=== PATIENT | female | born 1970 | race Caucasian/White ===

== ENCOUNTER 2022-05-06 15:06 | Emergency (ER) | payer OTHER, SELFPAY ==
[2022-05-06 15:14] VITALS: BP 136/110; PULSE 73; RESP 16; TEMP 36.3; O2SAT 100
--- NOTE | 2022-05-06 15:29 | ED.EAR ---
HPI - Ear Problem General Chief complaint: Ear Stated complaint: Right Ear Time Seen by Provider: 05/06/22 15:29 History of Present Illness HPI Narrative: RIGHT EAR PAIN NO DRAINAGE NO HEARING LOSS Related Data Allergies Allergy/AdvReac Type Severity Reaction Status Date / Time No Known Allergies Allergy Verified 05/06/22 15:32 Review of Systems Review of Systems: CONSTITUTIONAL: Denies fever, chills, or sweats. EYES: Denies visual changes, redness, or discharge. ENT: Denies rhinorrhea, congestion, sore throat, or otalgia. CARDIOVASCULAR: Denies chest pain, palpitations, or edema. RESPIRATORY: Denies cough or dyspnea. GASTROINTESTINAL: Denies abdominal pain, nausea, vomiting, or diarrhea. GENITOURINARY: Denies dysuria or hematuria. SKIN: Denies rash or itching. MUSCULOSKELETAL: Denies back pain, joint pain, or myalgia. NEUROLOGIC: Denies headache, numbness, or weakness. PSYCHIATRIC: Denies anxiety or depression. [facility] Family History Family History (Updated 05/28/14 @ 07:13 by DOCTOR UNKNOWN) Mother Family history of thyroid disease Father Family history of heart disease in male family member before age 55 Social History Social History Smoking status: Never smoker Alcohol intake: never Comments At time of signature, agree with nursing past medical, surgical, social and family history. There is no relevant family history pertinent to the presenting complaint Exam Narrative: GENERAL: Well-appearing, well-nourished, and in no acute distress. HEAD: Normocephalic, atraumatic. EYES: PERRLA and EOMI. ENT: Nares clear, no rhinorrhea or epistaxis. Mucous membranes moist. Moderate erythema to right canal right TM opaque left ear normal with good light reflex to left TM NECK: Supple. CHEST: Clear to auscultation. No respiratory distress. HEART: Regular rate and rhythm. No murmur heard. Normal peripheral pulses. ABDOMEN: Soft, nontender, nondistended, normal active bowel sounds. EXTREMITIES: Normal range of motion. No edema. SKIN: Warm, dry, no rash. NEURO: No focal deficits. Alert and oriented x3. Peggy Coma Scale Eye Opening: Spontaneous 4 [place] Coma Scale Motor: Obeys Commands 6 [place] Coma Scale Verbal: Oriented 5 [place] Coma Scale Total 15 Course Course Level of Care: Express Care Visit Vital Signs Vital signs: Vital Signs Temperature 36.3 C L 05/06/22 15:14 Pulse Rate 73 05/06/22 15:14 Respiratory Rate 16 05/06/22 15:14 Blood Pressure 136/110 H 05/06/22 15:14 Pulse Oximetry 100 05/06/22 15:14 Oxygen Delivery Room Air 05/06/22 15:14 Temperature 36.3 C L 05/06/22 15:14 Pulse Rate 73 05/06/22 15:14 Respiratory Rate 16 05/06/22 15:14 Blood Pressure 136/110 H 05/06/22 15:14 Pulse Oximetry 100 05/06/22 15:14 Oxygen Delivery Room Air 05/06/22 15:14 Please MANUEL schedule a followup visit with your personal physician for further evaluation and treatment. Including recheck and discussion of your blood pressure. If your symptoms persist, change or worsen significantly before you can contact your personal physician then please, without delay, go to the emergency department for further evaluation Medical Decision Making Differential Diagnosis Differential Diagnosis: Otitis media, otitis externa, eustachian tube dysfunction Vital Signs Vital Signs: Vital Signs Temperature 36.3 C L 05/06/22 15:14 Pulse Rate 73 05/06/22 15:14 Respiratory Rate 16 05/06/22 15:14 Blood Pressure 136/110 H 05/06/22 15:14 Pulse Oximetry 100 05/06/22 15:14 Oxygen Delivery Room Air 05/06/22 15:14 Temperature 36.3 C L 05/06/22 15:14 Pulse Rate 73 05/06/22 15:14 Respiratory Rate 16 05/06/22 15:14 Blood Pressure 136/110 H 05/06/22 15:14 Pulse Oximetry 100 05/06/22 15:14 Oxygen Delivery Room Air 05/06/22 15:14 Discharge Plan Discharge Clinical Impression: Otitis media Patient Disposition: Home, Self-Care Condition: Stabl
== END 2022-05-06 15:42 | disposition home or self-care (01) ==
PROVIDERS: Emergency Provider Nurse Practitioner Family; PCP Internal Medicine Infectious Disease
DX: H66.91 Otitis media, unspecified, right ear (principal)
CPT/HCPCS: 99203; G0463

== ENCOUNTER 2023-02-22 14:44 | Emergency (ER) | payer OTHER, SELFPAY ==
[2023-02-22 14:48] VITALS: BP 152/88; PULSE 84; RESP 20; TEMP 36.2; O2SAT 100
--- NOTE | 2023-02-22 14:50 | ED.EYEPROB ---
HPI - Eye Problem General Chief complaint: Eye Problems Stated complaint: poss pink eye Time Seen by Provider: 02/22/23 14:50 Source: patient and RN notes reviewed History of Present Illness HPI Narrative: Patient is a 52 old female presents to urgent care with complaints of 3 days of bilateral eye itchiness, matting and drainage. More effective to the right eye. Patient states that she has been using Visine. States that she does were glasses but does not use contacts. Denies any trauma or injury to the eye. Currently denies any vision change. No other acute complaints. No acute distress noted. Patient aware of the plan of care. Some parts of this dictation were generated by voice recognition software and may contain typographical and/or grammatical inaccuracies. Related Data Home Medications Medication Instructions Recorded Confirmed aspirin 81 mg tablet,delayed 81 mg PO DAILY 02/22/23 02/22/23 release (Enteric Coated Aspirin) Allergies Allergy/AdvReac Type Severity Reaction Status Date / Time No Known Allergies Allergy Verified 02/22/23 14:47 Review of Systems Review of Systems: CONSTITUTIONAL: Denies fever, chills, or sweats. EYES: Bilateral eye drainage, irritation, itchiness and matting ENT: Denies rhinorrhea, congestion, sore throat, or otalgia. CARDIOVASCULAR: Denies chest pain, palpitations, or edema. RESPIRATORY: Denies cough or dyspnea. GASTROINTESTINAL: Denies abdominal pain, nausea, vomiting, or diarrhea. GENITOURINARY: Denies dysuria or hematuria. SKIN: Denies rash or itching. MUSCULOSKELETAL: Denies back pain, joint pain, or myalgia. NEUROLOGIC: Denies headache, numbness, or weakness. All other systems reviewed are negative, except as documented in HPI. [facility] Family History Family History (Updated 05/28/14 @ 07:13 by DOCTOR UNKNOWN) Mother Family history of thyroid disease Father Family history of heart disease in male family member before age 55 Social History Social History Smoking status: Never smoker Alcohol intake: never Comments At the time of my signature, I reviewed and agree with the nursing past medical, surgical, social, and family history. There is no relevant family history pertinent to the patient complaint. Exam Narrative: GENERAL: This is a well-nourished, well-developed patient, in no apparent distress. HEAD: normocephalic, atraumatic. EYES: PERRL. Sclera clear/white. Vision is grossly intact. Mild injected conjunctiva bilaterally with clear discharge. EARS: External ears normal, NOSE: External nose normal with no obvious nasal discharge, nares without redness, no rhinorrhea. THROAT: Mucous membranes moist, posterior pharynx clear. NECK: Neck supple SKIN: warm, intact with no suspicious lesions or rash, good texture and turgor. NEURO: awake, alert, and oriented to person, place and time. There were no obvious focal neurologic abnormalities. EXTREMITIES: No clubbing, cyanosis, or edema. Course Course Level of Care: Express Care Visit Vital Signs Vital signs: Vital Signs Temperature 97.2 F L 02/22/23 14:48 Pulse Rate 84 02/22/23 14:48 Respiratory Rate 20 02/22/23 14:48 Blood Pressure 152/88 H 02/22/23 14:48 Pulse Oximetry 100 02/22/23 14:48 Oxygen Delivery Room Air 02/22/23 14:48 Temperature 97.2 F L 02/22/23 14:48 Pulse Rate 84 02/22/23 14:48 Respiratory Rate 20 02/22/23 14:48 Blood Pressure 152/88 H 02/22/23 14:48 Pulse Oximetry 100 02/22/23 14:48 Oxygen Delivery Room Air 02/22/23 14:48 Reviewed- Patient is informed that they may have pre-hypertension or hypertension based on a blood pressure reading in the department. I recommend the patient call the primary care provider listed on their discharge instructions or a physician of their choice this week to arrange follow-up for further evaluation of possible pre-hypertension or hypertension. MDM - Eye Problem MDM Narrative Medical decision ma
== END 2023-02-22 15:08 | disposition home or self-care (01) ==
PROVIDERS: Emergency Provider Nurse Practitioner Family; PCP Internal Medicine Infectious Disease
DX: H10.13 Acute atopic conjunctivitis, bilateral (principal)
CPT/HCPCS: 99213; G0463